=== PATIENT | male | born 1995 | race Caucasian/White ===

== ENCOUNTER 2019-07-29 16:03 | Emergency (ER) | payer BC, SELFPAY ==
[2019-07-29 16:10] VITALS: BP 160/86; PULSE 56; RESP 18; TEMP 36.9; O2SAT 99
--- NOTE | 2019-07-29 16:29 | ED.GENADULT ---
HPI - General Adult General Chief complaint: Abdominal Pain Stated complaint: PAIN IN ABD, DIARRHEA Source: patient and family Mode of arrival: ambulatory Limitations: no limitations History of Present Illness HPI narrative: Kian presents to the emergency department lower abdominal pain and diarrhea. Symptoms started with nausea, belly pain and diarrhea after eating at [employer]. issues very nauseous and having symptoms he has had his primary care provider who prescribed Zofran and recommended a brat diet. With this the nausea has improved however he getting keep little food down and now reports several bowel movements that are almost exclusively water. In addition he reports bilateral lower quadrant abdominal pain. He has not vomited, had hematemesis, melena or hematochezia. He also denies chest pain, shortness of breath and syncope. No dysuria. MD complaint: lower abdominal pain diarrhea Related Data Allergies Allergy/AdvReac Type Severity Reaction Status Date / Time No Known Allergies Allergy Unverified 07/27/19 14:16 Review of Systems Constitutional: Constitutional: Denies chills, Reports fatigue and Denies fever(s) Eyes: Eyes: Reports no additional eye complaints ENT: Reports system reviewed and no additional complaints, except as documented Cardiovascular: Cardiovascular: Denies chest pain and Denies rapid heart rate Respiratory: Respiratory: Reports no additional respiratory complaints Gastrointestinal: Gastrointestinal: Reports as per HPI Genitourinary: Genitourinary: Reports no additional male genitourinary complaints Musculoskeletal: Musculoskeletal: Reports no additional musculoskeletal complaints Integumentary/Breasts: Skin/Breast: Reports system reviewed and no additional complaints, except as docu Neurologic: Reports system reviewed and no additional complaints, except as documented Psychiatric: Psychiatric: Reports no additional psychiatric complaints [facility] Past Medical History Medical History Obesity, Class I, BMI 30-34.9 Surgical History Surgical History No history of previous surgery Social History Social History Social History: , no children Smoking status: Never smoker Alcohol intake: current Substance use: never Substance use type: does not use Additional living arrangements comments: with 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 Gender identity (if verbalized by the patient): Male Spiritual care concerns: No Exam Const: General: no acute distress and alert Orientation/consciousness: patient oriented x3 HENMT: Head: normal to inspection Eyes: Conjunctivae: conjunctivae normal Pupils: Equal, round and reactive pupils present Neck: Neck: normal visual inspection Chest: Chest palpation & inspection: normal inspection of the chest Resp: Effort & Inspection: normal respiratory effort and not tachypneic Auscultation: clear to auscultation bilaterally Cardio: Rate: regular rate Rhythm: regular rhythm Heart sounds: no murmurs GI: Other: soft, nontender, no rebound tenderness, no guarding, negative Doll sign, negative psoas sign, negative obturator sign, no CVA tenderness Back/Spine/Pelvis: Back: no CVA tenderness Skin: General skin exam: normal color Rashes: no rashes Neuro: General: patient oriented x3 and moves all extremities Extrem: General: normal to inspection Psych: Mental Status: mental status grossly normal Course Course Emergency Course: Kian was seen and evaluated. Ordered CBC, CMP, lipase as well as C diff antigen. was also given a dose of IV Zofran and 1 L of normal saline as his mucous membranes appeared a little dry. Vital Signs Vital signs: Vital Signs Temperature 36.9 C 07/29/19 16:10 Pulse Rate 56 L 07/29/19
[2019-07-29] MEDS: ONDANSETRON INJ 4 MG/2 ML VIAL IV PUSH (16:37)
[2019-07-29] MEDS: SODIUM CHLORIDE 0.9% IV 500 ML 999 ML IV CONT (16:37)
[2019-07-29 16:38] LABS: Basophils Absolute Auto 0.04 K/mm3 (0.00-0.10); Basophils Percent Auto 0.6 % (0.0-1.0); Eosinophils Percent Auto 1.4 % (1.0-6.0); Hematocrit 38.4 % (40.0-54.0); Hemoglobin 11.9 g/dL (14.0-18.0); Immature Granulocyte Absolute 0.03 K/mm3 (0.00-0.00); Immature Granulocyte Percent A 0.4 % (0.0-0.0); Lymphocytes Absolute Auto 1.97 K/mm3 (1.10-4.50); Lymphocytes Percent Auto 28.3 % (18.0-42.0); Mean Corpuscular Hemoglobin 18.6 pg (27.0-31.0); Mean Corpuscular Volume 60.1 fL (78.0-102.0); Mean Platelet Volume 10.7 fl (8.7-11.0); Monocytes Absolute Auto 0.65 K/mm3 (0.10-0.90); Monocytes Percent Auto 9.3 % (2.0-11.0); Neutrophils Absolute Auto 4.2 K/mm3 (1.7-7.2); Platelet Count Result 261 K/mm3 (150-420); Red Blood Count 6.39 M/mm3 (4.70-6.10); Red Cell Distribution Width 16.2 % (11.6-14.4)
[2019-07-29 16:53] LABS: Alanine Aminotransferase 53 U/L (16-63); Albumin Level 3.9 g/dL (3.4-5.0); Alkaline Phosphatase 65 U/L (46-116); Anion Gap 16.1 mmol/L (7-16); Aspartate Amino Transferase 27 U/L (15-37); Bilirubin,Total 0.5 mg/dL (0.00-1.00); Blood Urea Nitrogen 9 mg/dL (7-18); Calcium 8.7 mg/dL (8.5-10.1); Carbon Dioxide 25 mmol/L (21-32); Chloride 105 mmol/L (98-108); Estimated CRCL calculation 127 ml/min; Estimated Glomerular Filt Rate > 60; Glucose 95 mg/dL (70-99); Lipase 60 U/L (73-393); Osmolality Calculated 292 mOsm/kg (285-295); Potassium 4.1 mmol/L (3.5-5.1); Sodium 142 mmol/L (136-145); Total Protein 7.4 g/dL (6.4-8.2)
--- NOTE | 2019-07-29 17:00 | PC.NURSE ---
UA sent. Dr Freedrick at bedside.
[2019-07-29 17:12] LABS: Add Urine Microscopic? NO; Appearance Urine Clear (Clear); Bilirubin Urine Negative (Negative); Blood Urine Negative (Negative); Color Urine Yellow (Yellow); Glucose Urine UA Negative (Negative); Ketones Urine Negative (Negative); Leukocyte Esterase Ur Negative LEU/UL (Negative); Nitrate Urine Negative (Negative); Protein Urine Negative (Negative); Specific Grav Ur >= 1.030 (1.010-1.020); Urobilinogen Urine 0.2 mg/dL (0.2-1.0)
[2019-07-29 17:35] VITALS: BP 130/86; PULSE 50; RESP 18; O2SAT 98
== END 2019-07-29 17:37 | disposition home or self-care (01) ==
PROVIDERS: Emergency Provider Family Medicine; PCP Nurse Practitioner Family
DX: K52.9 Noninfective gastroenteritis and colitis, unspecified (principal)
CPT/HCPCS: 36415; 80053; 81003; 83690; 85025; 96374; 99283; 99284; J2405; J7040

== ENCOUNTER 2020-03-07 08:40 | Outpatient (CLI) | payer OTHER, SELFPAY ==
[2020-03-07 21:13] LABS: SARS-CoV-2 RNA PCR Negative
== END 2020-03-07 08:41 | disposition home or self-care (01) ==
PROVIDERS: PCP Nurse Practitioner Family; Visit Provider Nurse Practitioner Family
DX: Z20.828 Contact with and (suspected) exposure to other viral communicable diseases (principal)
CPT/HCPCS: 87635; C9803; U0003

== ENCOUNTER 2020-04-07 13:46 | Outpatient (CLI) | payer OTHER, SELFPAY ==
[2020-04-08 12:44] LABS: SARS-CoV-2 RNA PCR Negative
== END 2020-04-07 13:47 | disposition home or self-care (01) ==
LOC: CHSLAB 13:48
PROVIDERS: PCP Family Medicine; Visit Provider Family Medicine
DX: Z20.828 Contact with and (suspected) exposure to other viral communicable diseases (principal)
CPT/HCPCS: 87635; C9803; U0003

== ENCOUNTER 2020-05-02 09:18 | Outpatient (CLI) | payer OTHER, SELFPAY ==
[2020-05-02 09:57] LABS: SARS-CoV-2 Ag Negative (Negative)
== END 2020-05-02 09:19 | disposition home or self-care (01) ==
LOC: CHSLAB 09:20
PROVIDERS: PCP Family Medicine; Visit Provider Family Medicine
DX: Z20.828 Contact with and (suspected) exposure to other viral communicable diseases (principal)
CPT/HCPCS: 87426

== ENCOUNTER 2020-05-23 09:06 | Outpatient (CLI) | payer OTHER, SELFPAY ==
[2020-05-24 22:42] LABS: SARS-CoV-2 RNA PCR Negative
== END 2020-05-23 09:07 | disposition home or self-care (01) ==
PROVIDERS: PCP Nurse Practitioner Family; Visit Provider Nurse Practitioner Family
DX: R50.9 Fever, unspecified (principal); Z20.828 Contact with and (suspected) exposure to other viral communicable diseases
CPT/HCPCS: 87635; C9803; U0003

== ENCOUNTER 2020-12-25 23:28 | Emergency (ER) | payer OTHER, SELFPAY ==
--- NOTE | ~2020-12-25 | XR_ITS ---
EXAMINATION: XR ankle LT min 3V DATE: 12/25/2020 23:41 INDICATION: Left ankle pain TECHNIQUE: Anteroposterior, lateral, mortise, and additional oblique view of the ankle were obtained. COMPARISON: None. FINDINGS: There is lateral soft tissue swelling of ankle. Bone alignment is normal. There is no fract ure. A subtle ossification projecting at the medial aspect of the lateral malleolus appears contiguou s with the distal fibula. IMPRESSION: 1. Soft tissue swelling without acute osseous abnormality. Reviewed, dictated and finalized at location B.
[2020-12-25 23:35] VITALS: BP 154/100; PULSE 94; RESP 20; TEMP 37; O2SAT 98
--- NOTE | 2020-12-25 23:44 | ED.LOWEXIN ---
HPI - Extremity Injury (Lower) General Chief Complaint: Extremity Injury, Lower Stated Complaint: ANKLE INJURY Time Seen by Provider: 12/25/20 23:40 Source: patient Mode of arrival: ambulatory Limitations: no limitations History of Present Illness HPI Narrative: Patient comes in after stepping in a hole today. He had immediate pain in the area of the lateral malleolus as soon as this happened. Pain has been moderately severe, sharp and ongoing since 3pm when it happened. Pain is worse with weight bearing, and less with rest. MD complaint: foot injury Onset (ago): hour(s) Type of Injury: unknown Place: home Severity: moderate Relieving factors: rest Exacerbating factors: weight bearing Associated symptoms: snap/pop sensation Other symptoms: none Related Data Allergies Allergy/AdvReac Type Severity Reaction Status Date / Time Sulfa (Sulfonamide Allergy Unknown Verified 12/25/20 23:35 Antibiotics) Review of Systems Constitutional: Constitutional: Reports no additional constitutional complaints Eyes: Eyes: Reports no additional eye complaints ENT: Reports system reviewed and no additional complaints, except as documented Cardiovascular: Cardiovascular: Reports no additional cardiovascular complaints Respiratory: Respiratory: Reports no additional respiratory complaints Gastrointestinal: Gastrointestinal: Reports no additional gastrointestinal complaints Genitourinary: Genitourinary: Reports no additional male genitourinary complaints Musculoskeletal: Musculoskeletal: Reports no additional musculoskeletal complaints Integumentary/Breasts: Skin/Breast: Reports system reviewed and no additional complaints, except as docu Neurologic: Reports system reviewed and no additional complaints, except as documented Psychiatric: Psychiatric: Reports no additional psychiatric complaints Endocrine: Endocrine: Reports no additional endocrine complaints Hematologic/Lymphatic: Hematologic/Lymphatic: Reports no additional hematologic/lymphatic complaints Allergic/Immunologic: Allergic/Immunologic: Reports no additional allergic/immunologic complaints [facility] Past Medical History Medical History Obesity, Class I, BMI 30-34.9 Surgical History Surgical History No history of previous surgery Family History Family History Mother Heart disease Social History Social History Social History: , no children Smoking status: Never smoker Alcohol intake: current Substance use: never Substance use type: does not use Additional living arrangements comments: with 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 Gender identity (if verbalized by the patient): Male Spiritual care concerns: No Exam Const: General: no acute distress Orientation/consciousness: patient oriented x3 HENMT: Head: normal to inspection Ears: external ears normal General nose exam: Normal external nose present Mouth: Yes Normal oral and palatal mucosa present Eyes: Conjunctivae: conjunctivae normal Neck: Neck: normal visual inspection Chest: Chest palpation & inspection: normal inspection of the chest Resp: Effort & Inspection: normal respiratory effort Auscultation: clear to auscultation bilaterally Cardio: Rate: regular rate Rhythm: regular rhythm GI: GI Palp: Yes Soft to palpation (nontender) Skin: General skin exam: normal color Neuro: General: patient oriented x3 and moves all extremities Extrem: Other: Left ankle is swelled over lateral malleolus area, with some bruising there. He won't let me exam the ankle well withdrawing in pain. Psych: Appearance: grossly normal Mental Status: mental status grossly normal Thought content: Yes Normal thought content present Cours
[2020-12-26] MEDS: IBUPROFEN 400 MG TABLET 800 MG PO (00:20)
[2020-12-26 00:29] VITALS: BP 134/78; PULSE 87; RESP 18; O2SAT 98
== END 2020-12-26 00:30 | disposition home or self-care (01) ==
PROVIDERS: Emergency Provider Emergency Medicine; PCP Nurse Practitioner Family
DX: S93.402A Sprain of unspecified ligament of left ankle, initial encounter (principal)
CPT/HCPCS: 29515; 73610; 99282; 99283; A9270; L4350

== ENCOUNTER 2021-09-04 19:40 | Emergency (ER) | payer OTHER, SELFPAY ==
--- NOTE | ~2021-09-04 | XR_ITS ---
XR shoulder RT min 2V DATE: 09/04/2021 20:08 INDICATION: Shoulder pain with limited movement. History of dislocation. TECHNIQUE: 4 views COMPARISON: None FINDINGS: There are calcifications adjacent to the greater tuberosity of the proximal right humerus. No fracture or dislocation, periosteal reaction or bone destruction. Normal alignment at the acromioc lavicular and glenohumeral joints. IMPRESSION: Calcifications adjacent to the greater tuberosity of the proximal right humerus Reviewed, dictated and finalized at location A. IMPRESSION: Calcifications adjacent to the greater tuberosity of the proximal r ight humerus
[2021-09-04 19:50] VITALS: BP 160/115; PULSE 84; RESP 18; TEMP 36.4; O2SAT 97
--- NOTE | 2021-09-04 19:53 | ED.EXTPRO ---
HPI - Extremity Problem General Stated complaint: rt shoulder pain Time Seen by Provider: 09/04/21 19:53 Source: patient Mode of arrival: ambulatory Limitations: no limitations History of Present Illness HPI Narrative: this is a 26-year-old gentleman presents with right shoulder pain with decreased range of motion apparently over last morning woke up with severe shoulder pain and decreased range of motion. Does have tenderness in the bicipital area with palpation, has reduced range of motion in the right shoulder with no neck pain no numbness or tingling no known injuries no fever chills. Complaint: extremity pain Onset (ago): day(s) Pain Consistency: constant Location: right and other ( shoulder) Severity scale (1-10): 8 Quality: sharp Radiation: proximal Relieving factors: nothing Exacerbating factors: range of motion Associated symptoms: denies other symptoms Related Data Allergies Allergy/AdvReac Type Severity Reaction Status Date / Time Sulfa (Sulfonamide Allergy Unknown Verified 09/04/21 20:02 Antibiotics) Review of Systems Review of Systems: All systems reviewed & are unremarkable except as noted in HPI and below PMFSH Past Medical History Medical History Obesity, Class I, BMI 30-34.9 Surgical History Surgical History No history of previous surgery Family History Family History Mother Heart disease Social History Social History Social History: , no children Smoking status: Never smoker Alcohol intake: current Substance use: never Substance use type: does not use Additional living arrangements comments: with 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 Gender identity (if verbalized by the patient): Male Spiritual care concerns: No Exam Const: General: no acute distress Orientation/consciousness: patient oriented x3 HENMT: Head: normal to inspection Eyes: Conjunctivae: conjunctivae normal Pupils: Equal, round and reactive pupils present Neck: Neck: normal visual inspection and no lymphadenopathy Chest: Chest palpation & inspection: normal inspection of the chest Resp: Effort & Inspection: normal respiratory effort Cardio: Rate: regular rate Rhythm: regular rhythm GI: GI Palp: Yes Soft to palpation Percussion: Yes normal to percussion Urinary Catheter: Urinary Catheter: patent and draining Back/Spine/Pelvis: Back: no CVA tenderness Skin: General skin exam: normal color Rashes: no rashes Neuro: General: patient oriented x3 and moves all extremities Extrem: General: normal to inspection Other: Right shoulder pain with decreased range of motion Psych: Mental Status: mental status grossly normal Affect: normal affect Course Course Emergency Course: patient receive 4mg of IM morphine and after reassessment pain level has improved, x-ray performed shows no acute fractures. Critical Care Time Critical Care Time Critical Care Time: No Discharge Plan Discharge Clinical Impression: Hx of strain of rotator cuff Patient Disposition: Home, Self-Care Condition: Stable Instructions: Antibiotic Form Additional Instructions: take medicine as prescribed and follow-up with primary for possible further evaluation with an MRI. Prescriptions: New tramadol [Ultram] 50 mg tablet 50 mg PO Q6H PRN (Reason: pain) Qty: 30 RF: 0 Follow-up/Referrals: Chelsi Marie NP [Primary Care Provider] - Time of Disposition: 20:20
[2021-09-04] MEDS: MORPHINE SULFATE (*CRX) 4 MG/ML INJ IM (19:58)
[2021-09-04 20:26] VITALS: BP 147/109; PULSE 81; RESP 16; O2SAT 98
== END 2021-09-04 20:32 | disposition home or self-care (01) ==
PROVIDERS: Emergency Provider Emergency Medicine; PCP Nurse Practitioner Family
DX: S46.011A Strain of muscle(s) and tendon(s) of the rotator cuff of right shoulder, initial encounter (principal)
CPT/HCPCS: 73030; 96372; 99283; J2270

== ENCOUNTER 2021-09-19 09:55 | Outpatient (CLI) | payer OTHER, SELFPAY ==
--- NOTE | ~2021-09-19 | MR_ITS ---
EXAMINATION: MR shoulder RT wo con DATE: 09/19/2021 10:36 INDICATION: Right shoulder pain for 2 weeks, no new injury. History of rotator cuff injury. TECHNIQUE: Magnetic resonance imaging (MRI) of the right shoulder was performed without intravenous c ontrast. Sequences included axial PD-weighted FS FSE, coronal oblique PD-weighted FS FSE and T2-weigh luis alberto FS FSE, and sagittal oblique T2-weighted FS FSE and T1-weighted FSE. COMPARISON: X-ray shoulder 09/04/2021 FINDINGS: Coracoacromial arch: Acromial undersurface is flat (type I). Mild AC joint hypertrophy. No significant lateral downsloping of the acromion. Small volume subacromial subdeltoid fluid, with heterogeneous signal intensity of t he superior cuff. No os acromiale. Rotator cuff: Tiny focal 4 and 3 mm defect in the supraspinatus tendon at its insertion on the bursal and articular surfaces, respectively. 9 x 13 mm cystic fluid collection adjacent to the muscular tendinous junctio n of the supraspinatus. 7 mm cyst adjacent to the muscular tendinous junction of the subscapularis. T eres minor and infraspinatus are intact. Biceps tendon and glenoid labrum: Long and short heads of the biceps intact. Fluid surrounds the biceps tendon at the proximal humerus. Labral tear in the anterior superior quadrant. Fluid: No significant glenohumeral effusion. Bones/cartilage: Normal marrow signal. Normal cartilage. IMPRESSION: 1. Anterosuperior labral tear. 2. Small partial-thickness tears at the supraspinatus insertion. 3. Interstitial tears of the supraspinous and subscapularis. 4. Subacromial subdeltoid bursitis and bursal sided fraying. 5. Proximal long head of biceps tenosynovitis. Reviewed, dictated and finalized at location K.
== END 2021-09-19 09:56 | disposition home or self-care (01) ==
LOC: CHSIMG 09:56
PROVIDERS: PCP Family Medicine; Visit Provider Family Medicine
DX: M75.101 Unspecified rotator cuff tear or rupture of right shoulder, not specified as traumatic (principal)
CPT/HCPCS: 73221

== ENCOUNTER 2021-10-10 14:04 | Outpatient (RCR) | payer OTHER, SELFPAY ==
--- NOTE | 2021-10-17 07:41 | PTOPEVAL ---
Thank you for referring Kian Huff II to [facility].? The patient is scheduled to be seen for therapy? ____x/week for ___ weeks. Please review, sign, date and return this plan of care [facility]. I agree with and certify that the following plan of care is medically necessary. Referring Physician Date Admitting Provider: Attending Provider: Titi Darnell MD Referring Provider: *PT Outpatient Evaluation Start: 10/10/21 14:06 Freq: Status: Active Protocol: Document 10/10/21 14:06 BETHANIE (Rec: 10/10/21 15:37 BETHANIE [email or web address]) Therapy Assessment Status Assessment Status Assessment Status Evaluation Evaluation Information Problem Diagnosis R shoulder pain Onset 09/05/21 Additional Evaluation Detail quick dash = 29.55% Subjective Information Kian reports that he is Query Text:As Reported By Patient/ experiencing R shoulder pain Family that arose insidiously after awakening approximately 2 weeks ago. He states that his R shoulder was swollen and he was unable to lift his arm away from his body at all the morning his pain began. The pain has decreased since then, but he remains unable to lift his hand above shoulder level if he were to hold any object . Pain becomes worse when raising arm away from body, near ninety degrees of shoulder flexion. 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 Prior Level of Function Comments Additional Prior Level of Function Previously able to push mow. 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 Pain Assessment Timing of Pain Assessment Timing of Pain Assessment Assessment Pain Scale Pain Scale Used Numeric (1 - 10) Self Report Pain Assessment Right Shoulder(s) Reported Pain Level 2 Pain Description Aching,Radiating,Tender on Palpation Pain Radiation Right Arm Pain Frequency Continuous Lowest Pain Intensity 2 Greatest Pain Intensity 7 Pain Aggravating Factors ADL's Pain Behaviors Guarding Pain Score Pain Score 2: Self Report Interventions Used Interventions Used By Clinicians Electrical Stimulation,Heat Pain Relief Interventions Used By
--- NOTE | 2021-10-17 08:30 | PTOPEVAL ---
Thank you for referring Kian Huff II to [facility].? The patient is scheduled to be seen for therapy? ____x/week for ___ weeks. Please review, sign, date and return this plan of care [facility]. I agree with and certify that the following plan of care is medically necessary. Referring Physician Date Admitting Provider: Attending Provider: Titi Darnell MD Referring Provider: *PT Outpatient Evaluation Start: 10/10/21 14:06 Freq: Status: Active Protocol: Document 10/10/21 14:06 BETHANIE (Rec: 10/10/21 15:37 BETHANIE [email or web address]) Therapy Assessment Status Assessment Status Assessment Status Evaluation Evaluation Information Problem Diagnosis R shoulder pain Onset 09/05/21 Additional Evaluation Detail quick dash = 29.55% Subjective Information Kian reports that he is Query Text:As Reported By Patient/ experiencing R shoulder pain Family that arose insidiously after awakening approximately 2 weeks ago. He states that his R shoulder was swollen and he was unable to lift his arm away from his body at all the morning his pain began. The pain has decreased since then, but he remains unable to lift his hand above shoulder level if he were to hold any object . Pain becomes worse when raising arm away from body, near ninety degrees of shoulder flexion. 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 Prior Level of Function Comments Additional Prior Level of Function Previously able to push mow. 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 Pain Assessment Timing of Pain Assessment Timing of Pain Assessment Assessment Pain Scale Pain Scale Used Numeric (1 - 10) Self Report Pain Assessment Right Shoulder(s) Reported Pain Level 2 Pain Description Aching,Radiating,Tender on Palpation Pain Radiation Right Arm Pain Frequency Continuous Lowest Pain Intensity 2 Greatest Pain Intensity 7 Pain Aggravating Factors ADL's Pain Behaviors Guarding Pain Score Pain Score 2: Self Report Interventions Used Interventions Used By Clinicians Electrical Stimulation,Heat Pain Relief Interventions Used By
== END 2021-10-10 15:28 | disposition home or self-care (01) ==
LOC: CHSPT 14:04
PROVIDERS: Visit Provider Orthopaedic Surgery
DX: M75.81 Other shoulder lesions, right shoulder (principal); M25.511 Pain in right shoulder
CPT/HCPCS: 97014; 97161; G0283

== ENCOUNTER 2021-11-27 08:37 | Outpatient (CLI) | payer OTHER, SELFPAY ==
[2021-11-27 10:42] LABS: SARS-CoV-2 RNA PCR Positive (Negative)
== END 2021-11-27 08:38 | disposition home or self-care (01) ==
LOC: CHSLAB 08:39
PROVIDERS: PCP Nurse Practitioner Family; Visit Provider Nurse Practitioner Family
DX: U07.1 COVID-19 (principal)
CPT/HCPCS: C9803; U0003; U0005

== ENCOUNTER 2024-02-24 10:38 | Emergency (ER) | payer SELFPAY ==
--- NOTE | ~2024-02-24 | XR_ITS ---
EXAMINATION: XR foot RT min 3V DATE: 02/24/2024 11:12 INDICATION: Medial right foot pain TECHNIQUE: Dorsoplantar, two oblique and lateral views of the medial foot were obtained. COMPARISON: None. FINDINGS: Alignment is normal. No fracture. Joint spaces are normal. Soft tissues are unremarkable. IMPRESSION: 1. Negative right foot radiographs. Reviewed, dictated and finalized at location B.
--- NOTE | 2024-02-24 11:02 | ED.LOWEXIN ---
HPI - Extremity Injury (Lower) General Chief Complaint: Extremity Injury, Lower Stated Complaint: right foot pain/swelling Time Seen by Provider: 02/24/24 10:45 History of Present Illness HPI Narrative: Pt presents with pain in medial right foot without injury. Pt says he has had an achilles tendon ruptore and a dislocaion of this ankle and foot in past. Pt says it hurts to move and bear weight and has been happening for a couple of days. Related Data Allergies Allergy/AdvReac Type Severity Reaction Status Date / Time Sulfa (Sulfonamide Allergy Unknown Verified 02/24/24 10:45 Antibiotics) Review of Systems Review of Systems: All systems reviewed & are unremarkable except as noted in HPI and below PMFSH Past Medical History Medical History Calcific tendonitis of right shoulder Obesity, Class I, BMI 30-34.9 Right shoulder pain Surgical History Surgical History No history of previous surgery Family History Family History Mother Heart disease Social History Social History Social History: , no children Smoking status: Never smoker Alcohol intake: current Alcohol use details: social basis Substance use: current Substance use type: marijuana Living arrangements: with family Additional living arrangements comments: with Occupation/Education: occupation Additional occupation/education comments: [employer] 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 no swelling or deformity. Psych: Mental Status: mental status grossly normal Affect: normal affect Attitude: cooperative MDM - Extremity Injury (Lower) MDM Narrative Medical decision making narrative: Pt presents with pain to his medial foot without injury. exam minimal tenderness. expect sprain or strain but will get x ray to be safe. x ray neg. pt requests splint will order. home on naprosyn. pt has crutches if needed at home. Discharge Plan Discharge Clinical Impression: Foot sprain Patient Disposition: Home, Self-Care Condition: Stable Instructions: Antibiotic Form, Foot Sprain (ED) Prescriptions: New naproxen [Naprosyn] 500 mg tablet 500 mg PO BID Qty: 20 0RF Follow-up/Referrals: Amos Frederick DO [Primary Care Provider] - Stand Alone Forms: Work/School Release IP
== END 2024-02-24 11:30 | disposition home or self-care (01) ==
PROVIDERS: Emergency Provider Emergency Medicine; PCP Family Medicine
DX: S93.601A Unspecified sprain of right foot, initial encounter (principal); X58.XXXA Exposure to other specified factors, initial encounter
CPT/HCPCS: 29515; 73630; 99283; L4350

== ENCOUNTER 2024-02-25 21:31 | Emergency (ER) | payer SELFPAY ==
[2024-02-25 21:30] VITALS: BP 159/114; PULSE 97; RESP 18; TEMP 36.7; O2SAT 97
--- NOTE | 2024-02-25 21:51 | ED.EXTPRO ---
HPI - Extremity Problem General Chief complaint: Extremity Problem,Nontraumatic Stated complaint: R Foot Injury Time Seen by Provider: 02/25/24 21:46 Source: patient Mode of arrival: ambulatory Limitations: no limitations History of Present Illness HPI Narrative: 28 year old male returns to the Emergency Department complaining of right ankle pain. Patient was seen here yesterday for same. X-ray was unremarkable. Patient Rx Naproxen. States pain is worse. Initially began Wednesday 02/21. Denies any trauma. States started a new job a week ago and walks a lot, but denies any injury and left foot and ankle are asymptomatic. Has pain to just touch. Pain to medial aspect of ankle with redness and warmth to palpation. No history of gout. Has history of Achilles tendon rupture and ankle fracture in past. No fever, chills, nausea, vomiting, diarrhea. MD Complaint: joint swelling and joint paint Onset (ago): day(s) (4 days) Pain Consistency: constant Location: right and other (medial ankle) Quality: other (pain) Radiation: none Relieving factors: nothing Exacerbating factors: weight bearing, walking and palpation Associated symptoms: denies other symptoms Related Data Allergies Allergy/AdvReac Type Severity Reaction Status Date / Time Sulfa (Sulfonamide Allergy Unknown Unknown Verified 02/25/24 22:02 Antibiotics) Review of Systems Review of Systems: All systems reviewed & are unremarkable except as noted in HPI and below Constitutional: Constitutional: Reports as per HPI, Denies chills and Denies fever(s) Eyes: Eyes: Reports as per HPI ENT: Reports system reviewed and no additional complaints, except as documented Cardiovascular: Cardiovascular: Reports as per HPI and Denies chest pain Respiratory: Respiratory: Reports as per HPI and Denies dyspnea Gastrointestinal: Gastrointestinal: Reports as per HPI, Denies abdominal pain, Denies diarrhea, Denies nausea and Denies vomiting Genitourinary: Genitourinary: Reports no additional male genitourinary complaints Musculoskeletal: Musculoskeletal: Reports no additional musculoskeletal complaints, Reports arthralgias and Reports joint swelling Integumentary/Breasts: Skin/Breast: Reports erythema Neurologic: Reports system reviewed and no additional complaints, except as documented and Denies numbness PMFSH Past Medical History Medical History Calcific tendonitis of right shoulder Obesity, Class I, BMI 30-34.9 Right shoulder pain Surgical History Surgical History No history of previous surgery Family History Family History Mother Heart disease Social History Social History Social History: , no children Smoking status: Never smoker Alcohol intake: current Alcohol use details: social basis Substance use: current Substance use type: marijuana Living arrangements: with family Additional living arrangements comments: with Occupation/Education: occupation 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 [employer] Gender identity (if verbalized by the patient): Male Spiritual care concerns: No Exam Const: General: healthy appearing and alert Nutritional Appearance: well nourished Orientation/consciousness: patient oriented x3 Limitations: no limitations HENMT: Head: normal to inspection Ears: external ears normal Face/Nose/Sinus: Normal external nose present Face and sinus: normal facial exam Eyes: Pupils: Equal, round and reactive pupils present EOM: EOMs intact bilaterally Direct Ophthalmoscopy: no photophobia Neck: Neck: normal visual inspection Chest: Chest palpation & inspection: normal inspection of the chest Resp: Effort & Inspection: normal respiratory effort
[2024-02-25 22:08] LABS: Basophils Absolute Auto 0.05 K/mm3 (0.00-0.10); Basophils Percent Auto 0.5 % (0.0-1.0); Eosinophils Absolute Auto 0.09 K/mm3 (0.02-0.50); Eosinophils Percent Auto 0.9 % (1.0-6.0); Hematocrit 36.4 % (40.0-54.0); Hemoglobin 11.1 g/dL (14.0-18.0); Immature Granulocyte Absolute 0.03 K/mm3 (0.00-0.00); Immature Granulocyte Percent A 0.3 % (0.0-0.0); Immature Platelet Fraction Pct 3.9 % (1.0-7.0); Lymphocytes Absolute Auto 2.47 K/mm3 (1.10-4.50); Lymphocytes Percent Auto 25.1 % (18.0-42.0); Mean Corpuscular HGB Conc 30.5 g/dL (32-36); Mean Corpuscular Hemoglobin 18.1 pg (27.0-31.0); Mean Corpuscular Volume 59.4 fL (78.0-102.0); Mean Platelet Volume 10.8 fl (8.7-11.0); Monocytes Absolute Auto 0.89 K/mm3 (0.10-0.90); Monocytes Percent Auto 9.1 % (2.0-11.0); Neutrophils Percent Auto 64.1 % (50.0-70.0); Platelet Count Result 229 K/mm3 (150-420); Red Blood Count 6.13 M/mm3 (4.70-6.10); Red Cell Distribution Width 16.1 % (11.6-14.4); White Blood Count 9.8 K/mm3 (4.8-10.8)
[2024-02-25 22:18] LABS: Anion Gap 10 mmol/L (4-12); Blood Urea Nitrogen 11 mg/dL (7-18); Calcium 8.7 mg/dL (8.5-10.1); Carbon Dioxide 28 mmol/L (21-32); Chloride 101 mmol/L (98-108); Estimated CRCL calculation 119 ml/min; Estimated Glomerular Filt Rate > 60; Glucose 116 mg/dL (70-99); Osmolality Calculated 288 mOsm/kg (285-295); Potassium 3.5 mmol/L (3.5-5.1); Sodium 139 mmol/L (136-145); Uric Acid 6.6 mg/dL (3.5-7.2)
--- NOTE | 2024-02-25 22:33 | PC.NURSE ---
assumed care. report received from francisco al.
[2024-02-25 23:09] LABS: Erythrocyte Sedimentation Rate 4 mm/hr (0-15)
--- NOTE | 2024-02-25 23:11 | PC.NURSE ---
Dr Garcia at the bedside
[2024-02-25] MEDS: predniSONE 20 MG TABLET 60 MG PO (23:21)
[2024-02-25] MEDS: HYDROcodone/acetaminophen (*CRX) 10-325 MG TABLET 1 TAB PO (23:22)
[2024-02-25] MEDS: COLCHICINE 0.6 MG TABLET 1.2 MG PO (23:31)
[2024-02-25 23:52] VITALS: BP 140/98; PULSE 56; RESP 18; O2SAT 100
== END 2024-02-25 23:52 | disposition home or self-care (01) ==
PROVIDERS: Emergency Provider Emergency Medicine; PCP Family Medicine
DX: M11.80 Other specified crystal arthropathies, unspecified site (principal); M25.571 Pain in right ankle and joints of right foot; Z79.899 Other long term (current) drug therapy
CPT/HCPCS: 36415; 80048; 84550; 85025; 85055; 85652; 99283; A9270; J7512

== ENCOUNTER 2024-06-21 03:14 | Emergency (ER) | payer OTHER, SELFPAY ==
[2024-06-21 03:14] VITALS: BP 154/99; PULSE 91; RESP 18; TEMP 36.4; O2SAT 96
--- NOTE | 2024-06-21 03:24 | PC.NURSE ---
DR ROMERO AT THE BEDSIDE
--- NOTE | 2024-06-21 03:27 | ED_ITS ---
HPI - Back Pain/Injury General Chief Complaint: Back Pain/Injury Stated Complaint: left lower back pain Time Seen by Provider: 06/21/24 03:22 Source: patient and family Mode of arrival: ambulatory Limitations: no limitations History of Present Illness HPI Narrative: This is a 27-year-old male with no significant past medical history presents with a 3 day history of lower back pain radiating into his right lower leg and into his toes, with no known injury, no fever chills. No dysuria no saddle paresthesias. MD elicited complaint: back pain Pertinent past history: prior back pain Onset (ago): day(s) Timing: constant Severity: moderate Pain scale (0-10): 6 Similar Symptoms Previously: Yes Quality: aching and spasming Location: lumbar spine and right lower back Radiation: buttocks and right leg below the knee Exacerbating factors: movement Relieving factors: immobilization Context: while lifting, turning/twisting and bending Associated symptoms: denies other symptoms Related Data Allergies Allergy/AdvReac Type Severity Reaction Status Date / Time Sulfa (Sulfonamide Allergy Unknown Unknown Verified 02/28/24 08:47 Antibiotics) Review of Systems Review of Systems: All systems reviewed & are unremarkable except as noted in HPI and below PMFSH Past Medical History Medical History Right shoulder pain Calcific tendonitis of right shoulder Obesity, Class I, BMI 30-34.9 Surgical History Surgical History No history of previous surgery Family History Family History Mother Heart disease Social History Social History Social History: , no children Smoking status: Never smoker Alcohol intake: current Alcohol use details: social basis Substance use: current Substance use type: marijuana Living arrangements: with family Additional living arrangements comments: with Occupation/Education: occupation 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 [email or web address] Gender identity (if verbalized by the patient): Male Spiritual care concerns: No Exam Const: General: healthy appearing, no acute distress and alert Nutritional Appearance: well nourished Orientation/consciousness: patient oriented x3 Limitations: no limitations Resp: Effort & Inspection: normal respiratory effort Auscultation: clear to auscultation bilaterally Cardio: Rate: regular rate Rhythm: regular rhythm GI: GI Palp: Yes Soft to palpation Auscultation: normal bowel sounds Back/Spine/Pelvis: Other: L 4 right paravertebral tenderness to palpation with positive straight leg raising test on right. Skin: General skin exam: normal color Rashes: no rashes Neuro: General: patient oriented x3, moves all extremities and no meningeal signs Course Course Emergency Course: Patient received muscle relaxer IgM 60mg along with Toradol 60mg IM. Vital Signs Vital signs: Vital Signs Temperature 36.4 C 06/21/24 03:14 Pulse Rate 91 06/21/24 03:14 Respiratory Rate 18 06/21/24 03:14 Blood Pressure 154/99 H 06/21/24 03:14 Pulse Oximetry 96 06/21/24 03:14 Oxygen Delivery Room Air 06/21/24 03:14 Temperature 36.4 C 06/21/24 03:14 Pulse Rate 91 06/21/24 03:14 Respiratory Rate 18 06/21/24 03:14 Blood Pressure 154/99 H 06/21/24 03:14 Pulse Oximetry 96 06/21/24 03:14 Oxygen Delivery Room Air 06/21/24 03:14 Critical Care Time Critical Care Time Critical Care Time: No Discharge Plan Discharge Clinical Impression: Sciatica of right side Patient Disposition: Home, Self-Care Condition: Stable Instructions: Antibiotic Form, Sciatica (ED) Additional Instructions: take medication as prescribed, can use warm compress to affected area and follow-up with primary within 1 week for further evaluation treatment. Patient Language: Telugu Prescriptions: New tramadol 50 mg tablet 50 mg PO Q6H PRN (Reason: pain) Qty: 14 0RF cyclobenzaprine 5 mg tablet 5 mg PO TID Qty: 20 0RF No Action naproxen [Naprosyn] 500 mg tablet 500 mg PO BID Qty: 20 0RF prednisone 10 mg tablet 10 mg PO DIRECTED Qty: 21 0RF Rx Instructions: Day 1: 6 tabs, Day 2: 5 tabs, Day 3: 4 tabs, Day 4: 3 tabs, Day 5: 2 tabs, Day 6: 1 tab hydrocodone-acetaminophen 10-325 mg tablet 1 tablet PO Q6H PRN (Reason: pain) Qty: 20 0RF allopurinol 100 mg tablet 100 mg PO BID Qty: 180 0RF colchicine 0.6 mg capsule See Rx Instructions PO .Q 4 Hr MDD 4 tabs PRN (Reason: pain) Qty: 3 3RF Rx Instructions: Take 2 tabs at onset of gout flare and another 1 hour later. Do not repeat for 3 days Follow-up/Referrals: Amos Frederick DO [Primary Care Provider] - Time of Disposition: 03:33
[2024-06-21] MEDS: KETOROLAC (*BKC) 60 MG/2 ML VIAL IM (03:34)
[2024-06-21] MEDS: ORPHENADRINE CITRATE 30 MG/ML 2 ML VIAL 60 MG IM (03:34)
--- NOTE | 2024-06-21 03:59 | PC.NURSE ---
PATIENT REQUESTED SOMETHING DIFFERENT THAN TRAMADOL. IT DOES NOT WORK FOR ME . UPDATED DR ROMERO. PATIENT WAS INSTRUCTED TO TAKE ADVIL OR IBUPROFEN WITH THE FLEXERIL PER DR ROMERO
== END 2024-06-21 04:01 | disposition home or self-care (01) ==
LOC: CHSED 03:36
PROVIDERS: Emergency Provider Emergency Medicine; PCP Family Medicine
DX: M54.31 Sciatica, right side (principal)
CPT/HCPCS: 96372; 99284; J1885; J2360